=== PATIENT | male | born 1940 | race Caucasian/White ===

== ENCOUNTER 2018-09-23 11:23 | Emergency (ER) | payer OTHER ==
[~2018-09-23] VITALS: Ht 172.7 cm; Wt 95.2 kg
[~2018-09-23 11:23] MED LIST: AMOX875 PO; ASPI81CH PO; ASPI81EC; ATOR40TA PO; CARV25 PO; DOXY100T53 PO; HYDACE5325 PO; Hydrocodone-Ap1 EA23 PO; LISI5 PO; METO50 PO; Norco 5-325 Ta1 EACH PO; OXYACE5T PO; WARF4; XARELTO20 MG PO; Zofran4 MG PO
[2018-09-23 11:59] LABS: BASOPHILS ABSOLUTE AUTO 0.04 K/mm3 (0.00-0.23); BASOPHILS PERCENT AUTO 1 % (0-2); EOSINOPHILS ABSOLUTE AUTO 0.15 K/mm3 (0.00-0.68); EOSINOPHILS PERCENT AUTO 2 % (0-6); Hematocrit 45.9 % (37.0-53.0); Hemoglobin 14.6 g/dL (13.5-17.5); IMMATURE GRAN ABSOLUTE AUTO 0.03 K/mm3 (0.00-0.10); IMMATURE GRAN PERCENT AUTO 1 % (0-1); LYMPHOCYTES ABSOLUTE AUTO 1.39 K/mm3 (0.84-5.20); LYMPHOCYTES PERCENT AUTO 22 % (21-46); MONOCYTES ABSOLUTE AUTO 0.47 K/mm3 (0.16-1.47); MONOCYTES PERCENT AUTO 7 % (4-13); Mean Corpuscular HGB 26.4 pg (26.0-34.0); Mean Corpuscular HGB Conc 31.8 g/dL (31.5-36.5); Mean Corpuscular Volume 83 fL (80-100); Mean Platelet Volume 10.3 fL (9.1-12.4); NEUTROPHILS ABSOLUTE AUTO 4.38 K/mm3 (1.96-9.15); NEUTROPHILS PERCENT AUTO 68 % (41-73); Platelet Count 146 K/mm3 (150-400); RDW Coefficient Variation 16.3 % (11.7-14.2); RDW Standard Deviation 49.4 fL (35.1-46.3); Red Blood Cell Count 5.54 M/mm3 (4.30-5.90); White Blood Cell Count 6.46 K/mm3 (4.00-11.30)
[2018-09-23 12:18] LABS: International Normalized Ratio 1.19; Prothrombin Time Results 12.4 Sec (9.7-11.5)
[2018-09-23 12:27] LABS: Alanine Aminotransfer (ALT/SGP 24 U/L (12-78); Albumin, Blood 3.7 g/dL (3.4-5.0); Alk Phos 83 U/L (50-136); Anion Gap 6 mmol/L (6-16); Aspartate Aminotrans (AST/SGOT 18 U/L (12-37); Bilirubin, Total 0.9 mg/dL (0.1-1.0); Blood Urea Nitrogen 15 mg/dL (8-24); Bun/Creatinine Ratio 13.4 (12.0-20.0); CO2, Blood 30 mmol/L (21-32); Calcium, Blood 9.3 mg/dL (8.5-10.1); Chloride, Blood 102 mmol/L (98-108); Creatinine, Blood 1.12 mg/dL (0.60-1.20); Globulin, Blood 3.6 g/dL (2.2-4.0); Glomerular Filtration Rate >60 (60-); Glucose, Blood 245 mg/dL (70-99); Potassium, Blood 3.7 mmol/L (3.5-5.5); Sodium, Blood 138 mmol/L (136-145); Total Protein, Blood 7.3 g/dL (6.4-8.2)
[2018-09-23] MEDS ORDERED: TORSE20 PO (12:59)
[2018-09-23] MEDS ORDERED: Omeprazole20 M1 PO (13:00)
[2018-09-23] MEDS ORDERED: SPIR25 PO (13:00)
[2018-09-23 14:00] LABS: Source, Urine Clean Catch
[2018-09-23 14:10] LABS: Bilirubin, Urine Neg (Neg); Blood, Urine Neg (Neg); Glucose Qualitative, Urine Neg (Neg); Ketones, Urine Neg (Neg); Leukocyte Esterase, Urine Neg (Neg); Nitrite, Urine Neg (Neg); Protein, Urine Neg (Neg); Urobilinogen, Urine NORM (Normal); pH, Urine 6.5 (5.0-8.0)
[2018-09-23 14:22] LABS: Appearance, Urine Clear (Clear); Color, Urine Yellow (P-Yellow)
== END 2018-09-23 14:53 | disposition home or self-care (01) ==
LOC: ER 11:23
PROVIDERS: Emergency Medicine; Physician Assistant
DX: R10.9 Unspecified abdominal pain (principal); I48.91 Unspecified atrial fibrillation; Z79.899 Other long term (current) drug therapy
CPT/HCPCS: 36415; 80053; 81003; 85025; 85610; 93005; 93010; 96361; 96374; 96375; 99284-25; J2405; J3010; J7030

== ENCOUNTER 2018-10-03 19:53 | Emergency (ER) | payer OTHER ==
[~2018-10-03] VITALS: Ht 170.2 cm; Wt 108.9 kg
[~2018-10-03 19:53] MED LIST changes: +Omeprazole20 M1 PO; +SPIR25 PO; +TORSE20 PO
== END 2018-10-03 20:56 | disposition home or self-care (01) ==
LOC: ER 19:53
DX: R33.9 Retention of urine, unspecified (principal); Z88.8 Allergy status to other drugs, medicaments and biological substances; I48.91 Unspecified atrial fibrillation; E78.5 Hyperlipidemia, unspecified; I10 Essential (primary) hypertension; Z87.891 Personal history of nicotine dependence
CPT/HCPCS: 51702

== ENCOUNTER 2018-10-20 17:01 | Inpatient (IN) | payer OTHER ==
[~2018-10-20] VITALS: Ht 170.2 cm; Wt 97.9 kg
[2018-10-20 17:37] LABS: BASOPHILS ABSOLUTE AUTO 0.05 K/mm3 (0.00-0.23); BASOPHILS PERCENT AUTO 1 % (0-2); EOSINOPHILS ABSOLUTE AUTO 0.17 K/mm3 (0.00-0.68); EOSINOPHILS PERCENT AUTO 2 % (0-6); Hematocrit 32.3 % (37.0-53.0); Hemoglobin 10.4 g/dL (13.5-17.5); IMMATURE GRAN ABSOLUTE AUTO 0.07 K/mm3 (0.00-0.10); IMMATURE GRAN PERCENT AUTO 1 % (0-1); LYMPHOCYTES ABSOLUTE AUTO 2.92 K/mm3 (0.84-5.20); LYMPHOCYTES PERCENT AUTO 37 % (21-46); MONOCYTES PERCENT AUTO 9 % (4-13); Mean Corpuscular HGB 27.3 pg (26.0-34.0); Mean Corpuscular HGB Conc 32.2 g/dL (31.5-36.5); Mean Corpuscular Volume 85 fL (80-100); Mean Platelet Volume 9.4 fL (9.1-12.4); NEUTROPHILS ABSOLUTE AUTO 4.04 K/mm3 (1.96-9.15); NEUTROPHILS PERCENT AUTO 51 % (41-73); Platelet Count 296 K/mm3 (150-400); RDW Coefficient Variation 17.7 % (11.7-14.2); RDW Standard Deviation 54.1 fL (35.1-46.3); Red Blood Cell Count 3.81 M/mm3 (4.30-5.90); White Blood Cell Count 7.95 K/mm3 (4.00-11.30)
[2018-10-20 17:50] LABS: Alanine Aminotransfer (ALT/SGP 51 U/L (12-78); Albumin, Blood 3.4 g/dL (3.4-5.0); Albumin/Globulin Ratio 0.7 (0.8-1.8); Alk Phos 92 U/L (50-136); Anion Gap 9 mmol/L (6-16); Aspartate Aminotrans (AST/SGOT 31 U/L (12-37); Bilirubin, Total 0.5 mg/dL (0.1-1.0); Blood Urea Nitrogen 14 mg/dL (8-24); Bun/Creatinine Ratio 15.9 (12.0-20.0); CO2, Blood 30 mmol/L (21-32); Chloride, Blood 96 mmol/L (98-108); Creatinine, Blood 0.88 mg/dL (0.60-1.20); Globulin, Blood 4.9 g/dL (2.2-4.0); Glomerular Filtration Rate >60 (60-); Glucose, Blood 165 mg/dL (70-99); Magnesium, Blood 2.1 mg/dL (1.6-2.4); Potassium, Blood 2.9 mmol/L (3.5-5.5); Sodium, Blood 135 mmol/L (136-145); Total Protein, Blood 8.3 g/dL (6.4-8.2); Troponin I <0.015 ng/mL (0.000-0.040)
[2018-10-20 17:53] LABS: Prothrombin Time Results 10.6 Sec (9.7-11.5)
[2018-10-20] MEDS ORDERED: METO25ER PO (19:29)
[2018-10-20] MEDS ORDERED: FINA5 PO (19:29)
[2018-10-20] MEDS ORDERED: TAMS.4ER PO (21:18)
[2018-10-20 22:49] LABS: Anion Gap 7 mmol/L (6-16); Blood Urea Nitrogen 14 mg/dL (8-24); Bun/Creatinine Ratio 16.8 (12.0-20.0); CO2, Blood 32 mmol/L (21-32); Calcium, Blood 8.8 mg/dL (8.5-10.1); Chloride, Blood 98 mmol/L (98-108); Creatinine, Blood 0.83 mg/dL (0.60-1.20); Glomerular Filtration Rate >60 (60-); Glucose, Blood 165 mg/dL (70-99); Magnesium, Blood 2.8 mg/dL (1.6-2.4); Potassium, Blood 3.5 mmol/L (3.5-5.5); Sodium, Blood 137 mmol/L (136-145)
[2018-10-20 22:51] LABS: Thyroid Stimulating Hormone 0.169 uIU/mL (0.360-4.800)
[2018-10-20 23:48] LABS: Source, Urine Catheter
[2018-10-20 23:54] LABS: Bilirubin, Urine Neg (Neg); Blood, Urine 4+ (Neg); Glucose Qualitative, Urine Neg (Neg); Ketones, Urine Neg (Neg); Leukocyte Esterase, Urine 1+ (Neg); Nitrite, Urine Neg (Neg); Protein, Urine 1+ (Neg); Urobilinogen, Urine NORM (Normal)
[2018-10-20 23:57] LABS: Appearance, Urine Clear (Clear); Color, Urine Yellow (P-Yellow)
[2018-10-21] LABS: Bacteria Mod /hpf; Red Blood Cells, Urine 25-50 /hpf (0-2); Squamous Epithelial Cells Not Seen /hpf (Few)
--- NOTE | 2018-10-21 02:59 | NUR ---
PT ARRIVAL. PT ARRIVED ON UNIT VIA GURNEY, PT WAS ADMITTED DUE TO AICD DISCHARGE AT HOME. PT CURRENTLY DENEIS ANY CHEST PAIN/PRESSURE, N/V OR SOB. PT IS A&Ox4. PT IS [place]. PT WAS ADMITTED W/RONDON THAT WAS PLACED BY A URGOLOGIST IN [place] DUE TO RETENTION AND KIDNEY STONE. PT IS SUPPOSED TO HAVE LITHOTRIPSY DONE THIS MONTH. TELE WAS PLACED, NSR W/FREQUENT PVCS AND RUNS OF VTACH. PT IS NOT SYMPTOMATIC DURING THESE RUNS OF VTACH. PT'S BP 154/68. NO EDEMA NOTED ON ASSESSMENT. PT'S L/S CLEAR T/O AND DIM IN THE BASES, PT IS ON RA W/STATS >90%. RESPIRATIONS ARE EVEN AND UNLABORED. BT PRESENT AND HYPERACTIVE, ABD IS SOFT AND NONTENDER TO PALP. PT STATES NO BM FOR 5 DAYS. PT HAS RONDON PRESENT IT IS PATENT AND DRAINING TO GRAVITY YELLOW URINE. CALL LIGHT IN REACH, BED IS LOCKED AND LOW WILL CONTINUE TO MONITOR.
--- NOTE | 2018-10-21 05:53 | NUR ---
SHIFT SUMMARY. NO ACUTE CHANGES NOTED. PT'S VS HAVE BEEN STABLE. PT CONTINUES TO HAVE RUNS OF VTACH, PT IS NOT SYMPTOMATIC AT THIS TIME DURING THESE RUNS. CARDIOLOGY CONSULT WAS CALLED INTO ANSWERING SERVICE. CALL LIGHT IN REACH, BED IS LOCKED AND LOW WILL CONTINUE TO MONITOR UNTIL REPORT IS GIVEN TO ONCOMING RN.
[2018-10-21 06:28] LABS: Alanine Aminotransfer (ALT/SGP 41 U/L (12-78); Albumin/Globulin Ratio 0.7 (0.8-1.8); Alk Phos 76 U/L (50-136); Anion Gap 6 mmol/L (6-16); Aspartate Aminotrans (AST/SGOT 22 U/L (12-37); Bilirubin, Total 0.8 mg/dL (0.1-1.0); Blood Urea Nitrogen 14 mg/dL (8-24); Bun/Creatinine Ratio 17.8 (12.0-20.0); CO2, Blood 33 mmol/L (21-32); Calcium, Blood 8.7 mg/dL (8.5-10.1); Chloride, Blood 98 mmol/L (98-108); Creatinine, Blood 0.79 mg/dL (0.60-1.20); Globulin, Blood 4.1 g/dL (2.2-4.0); Glomerular Filtration Rate >60 (60-); Glucose, Blood 125 mg/dL (70-99); Magnesium, Blood 2.7 mg/dL (1.6-2.4); Potassium, Blood 3.1 mmol/L (3.5-5.5); Sodium, Blood 137 mmol/L (136-145); Total Protein, Blood 7.1 g/dL (6.4-8.2)
--- NOTE | 2018-10-21 09:12 | NUR ---
ARRYTHMIA PT DEVELOPED TORSADES ON MONITOR. ECHO WAS AT BEDSIDE DURING EVENT. PT FELT "WEIRD" . AFTER EVENT PT FEELING FINE. CERTIFIED NUCLEAR MEDICINE TECHNOLOGIST CONFIRMED ARRYTHMIA. PAGED DR MATTHEWS. CONTINUE POT.
--- NOTE | 2018-10-21 10:07 | NUR ---
K RIDER STARTED K RIDER #1. TALKED WITH PT ABOUT IT POSSIBLE BURNING HIS ARM. PLACED A WARM PACK ON HIS FA FOR COMFORT. PT STILL SAID IT HURT. PLACED AN ORDER FOR NS AT [facility] TO DILUTE KRIDER. TALKED WITH CHARGE NURSE AND REQUESTED A POWER GLIDE FOR HIM. DILUTION SEEMS TO BE HELPING. CONTINUE POT.
--- NOTE | 2018-10-21 11:37 | NUR ---
POTASSIUM RIDER DILUTED KRIDER FOR PT COMFORT. PT TOLERATIONG WELL. PT CARDIAC RYTHM ON MONITOR IS LESS IRRITABLE AFTER ALICIA KRIDER. ECTOPY HAS ALMOST STOPPED. OCCASIONAL PVC NOTED. PT SKIN COLOR IMPROVED. HE HAS PINK CHEEKS. VSS. CONTINUE POT.
--- NOTE | 2018-10-21 15:01 | NUR ---
POTASSIUM LEVEL PT POTASSIUM LEVEL CALLED TO DR MATTHEWS PER REQUEST. UPDATE ON PT CONDITION AND CARDIAC ARRYTHMIA GIVEN. NO ORDERS RECEIVED. PT CURRENTLY RESTING QUIETLY. CONTINUE POT.
[2018-10-22 03:58] LABS: Anion Gap 6 mmol/L (6-16); Blood Urea Nitrogen 17 mg/dL (8-24); Bun/Creatinine Ratio 17.7 (12.0-20.0); CO2, Blood 31 mmol/L (21-32); Calcium, Blood 9.2 mg/dL (8.5-10.1); Chloride, Blood 101 mmol/L (98-108); Creatinine, Blood 0.96 mg/dL (0.60-1.20); Glomerular Filtration Rate >60 (60-); Glucose, Blood 130 mg/dL (70-99); Magnesium, Blood 2.5 mg/dL (1.6-2.4); Potassium, Blood 3.9 mmol/L (3.5-5.5); Sodium, Blood 138 mmol/L (136-145)
--- NOTE | 2018-10-22 04:43 | NUR ---
CALL TO MD LEYVA AT 0430 THIS MORNING D/T FREQUENT PVC'S. PT'S K AND MG LEVELS REPORTED W/ ORDERS GIVEN FOR IV KCL TO BE GIVEN AT THIS TIME, SEE EMAR.
--- NOTE | 2018-10-22 05:40 | NUR ---
SHIFT SUMMARY PT A&O X4. MONITOR SHOWS AFIB, HR 40'S-70'S W/ FREQUENT PVC'S. CALL TO MD LEYVA W/ ORDERS FOR IV POTASSIUM, SEE EMAR. IV POTASSIUM INFUSING PER ORDERS. PT C/O BURNING SENSATION W/ INFUSION. NS GTT NOW INFUSING W/ POTASSIUM W/ PT REPORT OF INFUSION NOW BEING "TOLERABLE." PT C/O "TAILBONE" DISCOMFORT BEGINNING OF SHIFT. PT MEDICATED PER EMAR AND REPOSITIONED W/ NO FURTHER COMPLAINTS. CHRONIC RONDON CATH PLACED BY UROLOGIST IN [place] PATENT AND DRAINING DARK YELLOW URINE. PT IN BED W/ CALL LIGHT IN REACH. EKG DONE THIS AM. PT NPO SINCE MIDNIGHT. WILL CONTINUE TO MONITOR AND PROVIDE CARE UNTIL REPORT OFF TO DAY SHIFT RN.
--- NOTE | 2018-10-22 06:24 | NUR ---
MD MATTHEWS IN TO SEE PT W/ CLEARANCE TO EAT BREAKFAST. 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
--- NOTE | 2018-10-22 08:01 | NUR ---
PT'S ICD LOWER RATE CHANGED FROM VVI 40 TO VVI [address] MATTHEWS'S VERBAL ORDER
--- NOTE | 2018-10-22 08:15 | NUR ---
INITIAL ASSESSMENT: Pt resting in bed with IVF running per orders. VSS. LS clear. BT positive. HR irregular, tele shows NSR with frequent PVC's. AICD to L chest wall. Pt denies Chest pain or SOB at this time. States that he is going home today. PHysician just in to see Pt and D/C orders being written. Pt denies other needs. IV potassium to be completed prior to discharge. PT aware. Call light in reach. Will monitor.
[2018-10-22] MEDS ORDERED: ASPI81CH PO (10:30)
[2018-10-22] MEDS ORDERED: CARV25 PO (10:31)
[2018-10-22] MEDS ORDERED: Prinivil10 MG PO (10:32)
[2018-10-22] MEDS ORDERED: Micro-K10 MEQ PO (10:34)
--- NOTE | 2018-10-22 12:28 | NUR ---
DISCHARGE: PT GIVEN PRINTED AND WRITTEN DISCHARGE INSTUCTIONS, VERBALIZED UNDERSTANDING, DENIES QUIESTIONS. IV DISCONTINUED, CATH INTACT. RX CALLED TO [facility] IN [facility]. PT LEFT VIA W/C WITH ESCORT. STABLE AT TIME OF DISHCARGE.
== END 2018-10-22 12:21 | disposition home or self-care (01) | DRG 310 ==
LOC: ER 17:01 → ERHOLD 17:02 → PCU 17:02
PROVIDERS: Emergency Medicine; Internal Medicine Cardiovascular Disease; ADMIT Internal Medicine
DX: T82.190A Other mechanical complication of cardiac electrode, initial encounter (principal); I25.5 Ischemic cardiomyopathy; I10 Essential (primary) hypertension; I25.10 Atherosclerotic heart disease of native coronary artery without angina pectoris; E87.6 Hypokalemia; I25.2 Old myocardial infarction; I48.0 Paroxysmal atrial fibrillation; Z79.01 Long term (current) use of anticoagulants; E78.5 Hyperlipidemia, unspecified; E66.01 Morbid (severe) obesity due to excess calories; I08.0 Rheumatic disorders of both mitral and aortic valves; N40.1 Benign prostatic hyperplasia with lower urinary tract symptoms; K21.9 Gastro-esophageal reflux disease without esophagitis
CPT/HCPCS: 36415; 71045; 80048; 80053; 81001; 83735; 83880; 84132; 84443; 84484; 85025; 85610; 85730; 87077; 87086; 87186; 93005; 93010; 93282; 93306; 96365; 96366; 96368; 99285-25; G0378; J3475; J3480; J7040

== ENCOUNTER 2018-11-03 19:57 | Inpatient (IN) | payer OTHER ==
[~2018-11-03] VITALS: Ht 170.2 cm; Wt 103.3 kg
[~2018-11-03 19:57] MED LIST changes: +FINA5 PO; +METO25ER PO; +Micro-K10 MEQ PO; +Prinivil10 MG PO; +TAMS.4ER PO
[2018-11-03 20:20] LABS: Calcium, Ionized (POC) 1.19 mmol/L (1.10-1.46); Chloride (POC) 96 mmol/L (98-108); Creatinine (POC) 1.5 mg/dL (0.8-1.3); Glucose (ISTAT POC) 207 mg/dL (70-99); Hemoglobin (POC) 9.9 g/dL (13.5-17.5); Potassium (POC) 4.4 mmol/L (3.5-5.5); Sodium (POC) 136 mmol/L (135-148); Total CO2 (POC) 28 mmol/L (21-32)
[2018-11-03 20:23] LABS: BASOPHILS ABSOLUTE AUTO 0.03 K/mm3 (0.00-0.23); BASOPHILS PERCENT AUTO 0 % (0-2); EOSINOPHILS ABSOLUTE AUTO 0.15 K/mm3 (0.00-0.68); EOSINOPHILS PERCENT AUTO 2 % (0-6); Hematocrit 30.9 % (37.0-53.0); Hemoglobin 9.7 g/dL (13.5-17.5); IMMATURE GRAN ABSOLUTE AUTO 0.08 K/mm3 (0.00-0.10); IMMATURE GRAN PERCENT AUTO 1 % (0-1); LYMPHOCYTES ABSOLUTE AUTO 2.28 K/mm3 (0.84-5.20); LYMPHOCYTES PERCENT AUTO 23 % (21-46); MONOCYTES ABSOLUTE AUTO 0.91 K/mm3 (0.16-1.47); MONOCYTES PERCENT AUTO 9 % (4-13); Mean Corpuscular HGB 27.3 pg (26.0-34.0); Mean Corpuscular HGB Conc 31.4 g/dL (31.5-36.5); Mean Corpuscular Volume 87 fL (80-100); Mean Platelet Volume 10.2 fL (9.1-12.4); NEUTROPHILS ABSOLUTE AUTO 6.58 K/mm3 (1.96-9.15); NEUTROPHILS PERCENT AUTO 66 % (41-73); Platelet Count 199 K/mm3 (150-400); RDW Coefficient Variation 16.8 % (11.7-14.2); Red Blood Cell Count 3.55 M/mm3 (4.30-5.90); White Blood Cell Count 10.03 K/mm3 (4.00-11.30)
[2018-11-03 20:43] LABS: Prothrombin Time Results 10.6 Sec (9.7-11.5)
[2018-11-03] MEDS ORDERED: XARELTO10 MG PO (20:45)
[2018-11-03 20:47] LABS: Alanine Aminotransfer (ALT/SGP 18 U/L (12-78); Albumin, Blood 3.3 g/dL (3.4-5.0); Albumin/Globulin Ratio 0.8 (0.8-1.8); Alk Phos 80 U/L (50-136); Anion Gap 10 mmol/L (6-16); Aspartate Aminotrans (AST/SGOT 11 U/L (12-37); Bilirubin, Total 0.5 mg/dL (0.1-1.0); Blood Urea Nitrogen 34 mg/dL (8-24); Bun/Creatinine Ratio 24.3 (12.0-20.0); CO2, Blood 25 mmol/L (21-32); Calcium, Blood 9.1 mg/dL (8.5-10.1); Chloride, Blood 101 mmol/L (98-108); Glomerular Filtration Rate 52 (60-); Glucose, Blood 199 mg/dL (70-99); Magnesium, Blood 1.9 mg/dL (1.6-2.4); Potassium, Blood 3.8 mmol/L (3.5-5.5); Sodium, Blood 136 mmol/L (136-145); Total Protein, Blood 7.3 g/dL (6.4-8.2); Troponin I <0.015 ng/mL (0.000-0.040)
[2018-11-04 00:20] LABS: Source, Urine Catheter
[2018-11-04 00:22] LABS: Bilirubin, Urine Neg (Neg); Blood, Urine 5+ (Neg); Color, Urine Brown (P-Yellow); Glucose Qualitative, Urine 1+ (Neg); Ketones, Urine 1+ (Neg); Leukocyte Esterase, Urine 3+ (Neg); Nitrite, Urine Neg (Neg); Protein, Urine 3+ (Neg); Urobilinogen, Urine NORM (Normal)
[2018-11-04 00:31] LABS: Appearance, Urine Cloudy (Clear); Red Blood Cells, Urine 50-100 /hpf (0-2)
[2018-11-04 00:32] LABS: Amorphous Mod (0-Heavy); Bacteria Many /hpf; Mucus Light (0-Heavy); Squamous Epithelial Cells Not Seen /hpf (Few)
--- NOTE | 2018-11-04 04:38 | NUR ---
ASSUMING CARE AND SHIFT SUMMARY NOTE RECEIVED PT REPORT FROM ANDREW ISSA IN ER. PT IS BEING ADMITTED DUE TO INTERNAL DEFIBRILATOR FIRING MULTIPLE TIMES THROUGHOUT THE DAY. PT IS ALERT AND ORIENTED AT THE TIME OF ARRIVAL TO UNIT. PT WAS TRANSFERED TO ICU VIA STRETCHER BY ITALIAN TEACHER. PT ARRIVED TO THE UNIT AT APPROX 2258. PT IS RECEIVING AMIODARONE AT 1MG/MIN AT THE TIME OF ARRIVAL TO UNIT. NS AT 150ML/HR INITIATED SHORTLY AFTER ARRIVAL TO THE UNIT. PT ALSO PROVIDED X2 20MEQ OF KCL SHORTLY AFTER ARRIVAL TO UNIT. RATE WAS DECREASED TO 30ML/HR FROM 50ML/HR DUE TO PT REPORTS OF STINGING AT IV SITE RELATED TO KCL ADMINISTRATION. AT THE TIME OF ARRIVAL TO UNIT PT HR IS IN THE 50'S TO 60'S. PT RHYTHM APPEARS TO BE PACED THOUGH PACER SPIKES NOT BEING CAPTURED BY MONITOR AT THIS TIME. PT HAS HAD OCCASIONAL PVC'S AND A SHORT RUN OF APPROX 3 BEATS OF V-TACH NOTED. REFER TO CARDIAC STRIPS. PT HAS 22FR RONDON CATH IN PLACE THAT WAS PRESENT ON ADMISSION. PER REPORT RONDON WAS PLACED BY UROLOGIST ON 10/11/18 POST OPERATIVELY AFTER PROSTATECTOMY PROCEDURE. URINE APPEARS TO BE DARK AND BURGANDY IN COLOR. URINE SAMPLE COLLECTED AND SENT TO LAB. PT REPORTS THAT RONDON WAS PLACED BY UROLOGIST AFTER A FALSE PATHWAY WAS FORMED WITH RONDON PLACEMENT. DR. LEYVA CALLED AND INFORMED OF RONDON AND PLACEMENT BY UROLOGIST. INSTRUCTIONS RECEIVED TO NOT REMOVE/REPLACE RONDON AT THIS TIME. UPON ARRIVAL PT BP WAS FOUND TO BE IN THE 80'S RANGE. PT WAS ALERT AND ORIENTED WITH NO S/SX OF HYPOTENSION AT THAT TIME. BP WAS RECHECKED ON OTHER ARM WITH SIMILAR OR LOWER READINGS. RESULTS QUESTIONED PT DID NOT EXHIBIT S/SX OF HYPOTENSION. BP CHECKED ON LOWER EXTREMITIED WITH RESULTS IN THE 90-100'S RANGE SYSTOLIC. MANUAL BP CHECKED ON ARMS WITH RESULTS APPROX 10 POINTS HIGHER THAN AUTOMATIC BP CHECKS. MANUAL BP ON ARMS CORRELATED WITH BP ON LOWER EXTREMITIES. AT APPROX 0250 PT AMIODARONE WAS REDUCED TO 0.5MG/MIN. ASSUMED CARE OF PT AT THE TIME OF ARRIVAL TO UNIT. PT HAS RESTED THROUGH MUCH OF THE NIGHT. PT HR MAINTAINING IN THE 50-60'S. BP MAINTAINING IN THE 90-110'S WITH BP CUFF ON THE LOWER EXTREMITIES. WILL REPORT OFF TO ONCOMING DAY SHIFT NURSE.
[2018-11-04 05:42] LABS: Alanine Aminotransfer (ALT/SGP 17 U/L (12-78); Albumin, Blood 2.9 g/dL (3.4-5.0); Albumin/Globulin Ratio 0.9 (0.8-1.8); Alk Phos 70 U/L (50-136); Anion Gap 6 mmol/L (6-16); Aspartate Aminotrans (AST/SGOT 13 U/L (12-37); Bilirubin, Total 0.4 mg/dL (0.1-1.0); Blood Urea Nitrogen 29 mg/dL (8-24); Bun/Creatinine Ratio 25.2 (12.0-20.0); CO2, Blood 25 mmol/L (21-32); Calcium, Blood 9.1 mg/dL (8.5-10.1); Chloride, Blood 108 mmol/L (98-108); Creatinine, Blood 1.15 mg/dL (0.60-1.20); Globulin, Blood 3.3 g/dL (2.2-4.0); Glomerular Filtration Rate >60 (60-); Glucose, Blood 133 mg/dL (70-99); Magnesium, Blood 2.5 mg/dL (1.6-2.4); Potassium, Blood 5.6 mmol/L (3.5-5.5); Sodium, Blood 139 mmol/L (136-145); Total Protein, Blood 6.2 g/dL (6.4-8.2)
--- NOTE | 2018-11-04 08:53 | NUR ---
0700-ASSUMED CARE OF PT. PT IS ALERT AND ORIENTED. DENIES PAIN AT THIS TIME. PT WAS RECENTLY MEDICATED WITH TYLENOL. 0820-REPOSITIONED PT FOR BREAKFAST. 0845-SEEN BY DR. MATTHEWS. PT WILL BE TRANSFERED TO [facility].
--- NOTE | 2018-11-04 14:37 | NUR ---
Met with and Mrs. Sellers at bedside. Both report concern for pt's transfer to [place] for cardiac intervention. They are not bahai, but responded well to assurance of care, affirmation of obvious love, and a blessing for a healthy outcome.
--- NOTE | 2018-11-04 16:12 | NUR ---
1530-DR. MATTHEWS WAS NOTIFIED THAT PT FELT A "HAMLIN". PT DENIED BEING SHOCKED BUT THIS WAS THE SYMPTOM HE FELT. STILL NO BEDS AVAILABLE IN [facility]. STILL ON AMIODARONE DRIP TO END @ 2029 PER REPORT FROM NIGHT RN. WILL START FOR PO AMIODARONE 1 HOUR BEFORE DISCONTINUING DRIP. PT AND SPOUSE WERE GIVEN UPDATES OF BED AVAILABILITY.
--- NOTE | 2018-11-04 17:57 | NUR ---
SHIFT SUMMARY: PT IS AWAKE AND ORIENTED. STILL WAITING FOR AVAILABLE BED IN [facility]. PT HAS BEEN TAKING SOME TYLENOL FOR HIS "TAIL BONE" PAIN. AFEBRILE. NO SHOCKS DELIVERING NOTED FROM [facility].
--- NOTE | 2018-11-04 20:15 | NUR ---
REPORT RECIEVED FROM JAN OFF GOING RN. MONITOR INTACT SHOWING PACED RHYTHM HEART RATE 50'S-60'S. DENIES DISCOMFORT. LUNG SOUNDS CLEAR RESPIRATIONS REGULAR AND EASY AT REST 15-20/MIN/ SPO2 100% O2 REMOVED WILL CONTINUE TO SPOT CHECK. ABDOMEN SOFT WITH BOWEL SOUNDS FOUR QUADS. RONDON PATENT DRAINING DK MARYA URINE. REPOSITIONS SELF IN BED. TRACE EDEMA NOTED TO LOWER EXTREMITIES. WILL CONTINUE TO MONITOR AND REPORT CHANGE IN PATIENT CONDITION. ANTICIPATES TRANSFER TO [facility] IN AM
--- NOTE | 2018-11-04 21:42 | NUR ---
PT STATES " FEELS STRANGE" DENIES PAIN, SHORTNESS OF BREATH NO CHANGES IN THYTHM MONITOR, RESPIRATIONS, FACIAL EXPRESSION. UNABLE TO VERBALIZE ANY OTHER DETAILS. FARM OPERATIONS MANAGER EQUAL, NO FACIAL DROO[ OR CHANGES NOTED IN SPEECH OR PUPILS. CONTINUE TO MONITOR AND REPORT CHANGE IN PATIENT CONDITION.
--- NOTE | 2018-11-04 23:30 | NUR ---
DISCUSSED PENDING TRANSFER TO [facility] WITH PT
--- NOTE | 2018-11-05 02:00 | NUR ---
CO "FEELING STUFFY UNABLE TO EXPLAIN FURTHER. FEELING NERVOUS RE TRANSFER IN THE MORNING" CONTINUE TO MONITOR AND REPORT CHANGE IN PATIENT CONDITION. REASSURENCE AND EMOTIONAL SUPPORT GIVEN. ACTIVE LISTENING TO CONCERNS.
[2018-11-05 03:30] LABS: BASOPHILS ABSOLUTE AUTO 0.05 K/mm3 (0.00-0.23); BASOPHILS PERCENT AUTO 1 % (0-2); EOSINOPHILS PERCENT AUTO 2 % (0-6); Hematocrit 28.5 % (37.0-53.0); Hemoglobin 8.7 g/dL (13.5-17.5); IMMATURE GRAN ABSOLUTE AUTO 0.07 K/mm3 (0.00-0.10); IMMATURE GRAN PERCENT AUTO 1 % (0-1); LYMPHOCYTES ABSOLUTE AUTO 2.05 K/mm3 (0.84-5.20); LYMPHOCYTES PERCENT AUTO 22 % (21-46); MONOCYTES ABSOLUTE AUTO 0.79 K/mm3 (0.16-1.47); MONOCYTES PERCENT AUTO 8 % (4-13); Mean Corpuscular HGB 26.8 pg (26.0-34.0); Mean Corpuscular HGB Conc 30.5 g/dL (31.5-36.5); Mean Corpuscular Volume 88 fL (80-100); Mean Platelet Volume 10.2 fL (9.1-12.4); NEUTROPHILS ABSOLUTE AUTO 6.24 K/mm3 (1.96-9.15); NEUTROPHILS PERCENT AUTO 67 % (41-73); Platelet Count 175 K/mm3 (150-400); RDW Coefficient Variation 16.7 % (11.7-14.2); RDW Standard Deviation 54.1 fL (35.1-46.3); Red Blood Cell Count 3.25 M/mm3 (4.30-5.90)
[2018-11-05 03:46] LABS: Albumin, Blood 2.9 g/dL (3.4-5.0); Anion Gap 7 mmol/L (6-16); Blood Urea Nitrogen 19 mg/dL (8-24); Bun/Creatinine Ratio 21.1 (12.0-20.0); CO2, Blood 25 mmol/L (21-32); Calcium, Blood 9.4 mg/dL (8.5-10.1); Chloride, Blood 104 mmol/L (98-108); Glomerular Filtration Rate >60 (60-); Glucose, Blood 135 mg/dL (70-99); Phosphorus, Blood 2.7 mg/dL (2.5-4.9); Potassium, Blood 4.4 mmol/L (3.5-5.5); Sodium, Blood 136 mmol/L (136-145)
--- NOTE | 2018-11-05 05:32 | NUR ---
SHIFT SUMMARY : RESTS QUIETLY WHEN UNDISTURBED. MONITOR INTACT SHOWING PACED RHYTHM WITH OCC ECTOPY. HEART RATE 50'S-60'S. LUNG SOUNDS REMAIN CLEAR. RESPIRATIONS REGULAR AND EASY AT REST. SPOT CHECK SPO2 98-100%. ABDOMEN SOFT WITH BOWEL SOUNDS FOUR QUADS. RONDON PATENT DRAINING DARK MARYA URINE. REPOSITIONS SELF IN BED. REPORT ATTEMPTED TO BE CALLED TO [facility] ACCEPTING RN HOWEVER SHE STATES UNABLE TO ACCEPT REPORT AT THIS TIME BUT WILL CALL BACK FOR REPORT.
--- NOTE | 2018-11-05 05:55 | NUR ---
[facility] HERE TO TRANSPORT REPORT GIVEN TO AMBULANCE PERSONELL. TRANSFER TO [facility] [place] .
--- NOTE | 2018-11-05 06:42 | NUR ---
0608 DELRO[facility] MORALES CALLED FOR REPORT. HAS BEEN UNAVAILABLE, REPORT GIVEN.
== END 2018-11-05 05:55 | disposition short-term general hospital (02) | DRG 309 ==
LOC: ER 19:57 → ICUE 21:49 → ICUW 21:49 → ICUE 22:50
PROVIDERS: Emergency Medicine; Family Medicine; ADMIT Hospitalist
DX: I47.2 Ventricular tachycardia (principal); N17.9 Acute kidney failure, unspecified; I25.5 Ischemic cardiomyopathy; E87.6 Hypokalemia; I25.10 Atherosclerotic heart disease of native coronary artery without angina pectoris; I48.0 Paroxysmal atrial fibrillation; Z95.810 Presence of automatic (implantable) cardiac defibrillator; E78.5 Hyperlipidemia, unspecified; I10 Essential (primary) hypertension; E66.01 Morbid (severe) obesity due to excess calories; Z68.38 Body mass index [BMI] 38.0-38.9, adult; R33.9 Retention of urine, unspecified; K21.9 Gastro-esophageal reflux disease without esophagitis; Z96.0 Presence of urogenital implants; I25.2 Old myocardial infarction; E87.5 Hyperkalemia; I49.01 Ventricular fibrillation
CPT/HCPCS: 36415; 71045; 80047; 80053; 80069; 81001; 83605; 83735; 84132; 84484; 85014; 85025; 85610; 87086; 93005; 93010; 96365; 96366; 96375; 99285-25; J0282; J3475; J3480; J7030; J7060

== ENCOUNTER → 2024-01-25 | Outpatient (CLI) | payer MEDICARE ==
[~2024-01-25] MED LIST changes: +XARELTO10 MG PO
[2024-01-25 08:41] LABS: BASOPHILS ABSOLUTE AUTO 0.04 K/mm3 (0.00-0.23); BASOPHILS PERCENT AUTO 1 % (0-2); EOSINOPHILS ABSOLUTE AUTO 0.06 K/mm3 (0.00-0.68); EOSINOPHILS PERCENT AUTO 1 % (0-6); Hematocrit 47.8 % (37.0-53.0); Hemoglobin 15.9 g/dL (13.5-17.5); IMMATURE GRAN ABSOLUTE AUTO 0.03 K/mm3 (0.00-0.10); IMMATURE GRAN PERCENT AUTO 1 % (0-1); LYMPHOCYTES ABSOLUTE AUTO 1.63 K/mm3 (0.84-5.20); LYMPHOCYTES PERCENT AUTO 25 % (21-46); MONOCYTES ABSOLUTE AUTO 0.49 K/mm3 (0.16-1.47); MONOCYTES PERCENT AUTO 8 % (4-13); Mean Corpuscular HGB 30.1 pg (26.0-34.0); Mean Corpuscular HGB Conc 33.3 g/dL (31.5-36.5); Mean Corpuscular Volume 91 fL (80-100); NEUTROPHILS ABSOLUTE AUTO 4.17 K/mm3 (1.96-9.15); NEUTROPHILS PERCENT AUTO 65 % (41-73); RDW Coefficient Variation 13.5 % (11.7-14.2); RDW Standard Deviation 45.1 fL (35.1-46.3); Red Blood Cell Count 5.28 M/mm3 (4.30-5.90); White Blood Cell Count 6.42 K/mm3 (4.00-11.30)
[2024-01-25 08:50] LABS: Albumin/Globulin Ratio 1.1 (0.8-1.8); Bilirubin, Total 1.7 mg/dL (0.1-1.0); Bun/Creatinine Ratio 12.4 (12.0-20.0); Calcium, Blood 9.9 mg/dL (8.5-10.1); Creatinine, Blood 1.05 mg/dL (0.60-1.20); Globulin, Blood 3.7 g/dL (2.2-4.0); Magnesium, Blood 1.8 mg/dL (1.6-2.4); Potassium, Blood 4.4 mmol/L (3.5-5.5); Total Protein, Blood 7.7 g/dL (6.4-8.2)
[2024-01-25 08:55] LABS: Mean Platelet Volume 9.4 fL (9.1-12.4); Platelet Count 128 K/mm3 (150-400)
== END | disposition home or self-care (01) ==
LOC: LAB SHORT 08:34 → LAB 08:34
PROVIDERS: Emergency Medicine
DX: N39.0 Urinary tract infection, site not specified (principal); R31.9 Hematuria, unspecified
CPT/HCPCS: 80053; 83735; 85025; 87086

== ENCOUNTER 2024-07-16 09:09 | Emergency (ER) | payer MEDICARE ==
[~2024-07-16] VITALS: Ht 165.1 cm; Wt 72.6 kg
[2024-07-16] MEDS ORDERED: OxyCODONE HCL 5 MG TAB PO ONE (11:35)
[2024-07-16 12:30] VITALS: BP 130/68
[2024-07-16] MEDS ORDERED: Gabapentin 300 MG Cap PO ONE (12:35)
[2024-07-16] MEDS ORDERED: GABA300 PO (13:02)
== END 2024-07-16 13:19 | disposition home or self-care (01) ==
LOC: ER 09:09
DX: M54.17 Radiculopathy, lumbosacral region (principal); I10 Essential (primary) hypertension; E78.5 Hyperlipidemia, unspecified; I48.91 Unspecified atrial fibrillation; I25.10 Atherosclerotic heart disease of native coronary artery without angina pectoris; Z79.01 Long term (current) use of anticoagulants; Z79.899 Other long term (current) drug therapy; Z88.5 Allergy status to narcotic agent; Z87.891 Personal history of nicotine dependence; Z95.810 Presence of automatic (implantable) cardiac defibrillator
CPT/HCPCS: 99283; A9270

== ENCOUNTER 2024-07-27 17:32 | Observation (INO) | payer MEDICARE ==
[~2024-07-27] VITALS: Ht 182.9 cm; Wt 72.6 kg
[~2024-07-27 17:32] MED LIST changes: +GABA300 PO
[2024-07-27 17:57] LABS: BASOPHILS ABSOLUTE AUTO 0.02 K/mm3 (0.00-0.23); BASOPHILS PERCENT AUTO 0 % (0-2); EOSINOPHILS ABSOLUTE AUTO 0.04 K/mm3 (0.00-0.68); EOSINOPHILS PERCENT AUTO 1 % (0-6); Hemoglobin 13.1 g/dL (13.5-17.5); IMMATURE GRAN ABSOLUTE AUTO 0.04 K/mm3 (0.00-0.10); IMMATURE GRAN PERCENT AUTO 1 % (0-1); LYMPHOCYTES ABSOLUTE AUTO 0.86 K/mm3 (0.84-5.20); LYMPHOCYTES PERCENT AUTO 17 % (21-46); MONOCYTES ABSOLUTE AUTO 0.44 K/mm3 (0.16-1.47); MONOCYTES PERCENT AUTO 9 % (4-13); Mean Corpuscular HGB 31.2 pg (26.0-34.0); Mean Corpuscular HGB Conc 33.6 g/dL (31.5-36.5); Mean Corpuscular Volume 93 fL (80-100); Mean Platelet Volume 9.7 fL (9.1-12.4); NEUTROPHILS ABSOLUTE AUTO 3.69 K/mm3 (1.96-9.15); NEUTROPHILS PERCENT AUTO 73 % (41-73); Platelet Count 101 K/mm3 (150-400); RDW Coefficient Variation 13.3 % (11.7-14.2); RDW Standard Deviation 44.7 fL (35.1-46.3); White Blood Cell Count 5.09 K/mm3 (4.00-11.30)
[2024-07-27 18:21] LABS: Albumin/Globulin Ratio 1.1 (0.8-1.8); Bilirubin, Total 1.2 mg/dL (0.1-1.0); Calcium, Blood 8.5 mg/dL (8.5-10.1); Creatinine, Blood 0.71 mg/dL (0.60-1.20); Globulin, Blood 2.8 g/dL (2.2-4.0); Magnesium, Blood 1.7 mg/dL (1.6-2.4); Phosphorus, Blood 2.4 mg/dL (2.5-4.9); Potassium, Blood 3.6 mmol/L (3.5-5.5); Total Protein, Blood 5.8 g/dL (6.4-8.2)
[2024-07-27 18:43] LABS: Influenza B, PCR NEGATIVE (NEGATIVE); Resp Syncytial Virus, PCR NEGATIVE (NEGATIVE); SARS-Cov-2 (COVID-19) PCR, MMC NEGATIVE (NEGATIVE)
[2024-07-27 18:46] LABS: Influenza A, PCR POSITIVE (NEGATIVE)
[2024-07-27] MEDS ORDERED: Ondansetron HCl 2 MG / ML 2ML Vial IV ONE (21:20)
[2024-07-27] MEDS ORDERED: FLU VACC TS2024-25(6MOS UP)/PF 45 MCG/0.5 ML SYRINGE IM SCH (21:55)
[2024-07-27] MEDS ORDERED: Ondansetron HCl 2 MG / ML 2ML Vial IV PRN (21:55)
[2024-07-27] MEDS ORDERED: Oseltamivir Phosphate 75 MG Cap PO ONE (22:00)
[2024-07-27] MEDS ORDERED: Potassium Phosphate Dibasic 15 MM in Dextrose 5% 250 ML IV STA (22:57)
[2024-07-27] MEDS ORDERED: GABA300 PO (22:59)
[2024-07-27] MEDS ORDERED: METO50 PO (23:00)
[2024-07-27] MEDS ORDERED: Magnesium Sulf 2 GM/Water 50ML 50 ML IV ONE (23:00)
[2024-07-27] MEDS ORDERED: Lisinopril2.5 MG PO (23:01)
[2024-07-27 23:11] VITALS: BP 148/65
[2024-07-27] MEDS ORDERED: NS 250 ML IV PRN (23:35)
--- NOTE | 2024-07-28 05:07 | NUR ---
SHIFT SUMMARY 84 YR M ADMITTED ON 07/26/24. FULL CODE. SHORTLY AFTER ARRIVAL TO THIS UNIT, PT VOMITED FOR APPROX 10 MINUTES STRAIGHT. HE WAS GIVEN 4MG ZOFRAN WITH GOOD RESULTS. HE WAS VERY TIRED UPON ARRIVAL AND SLEPT OFF AND ON THROUGH HIS ASSESSMENT. TELE IN PLACE. PER PEDIATRICS PHYSICIAN, PT HAS A 9 BEAT RUN OF RAMONA @ 0400. NO OTHER ADVERSE TELE EVENTS. BED ALARM ON PT IS IMPULSIVE TO GET UP TO USE A URINAL AT BEDSIDE, AND HE IS VERY WEAK AND UNSTEADY ON HIS FEET. HE WAS EDUCATED ON USING THE CALL LIGHT TO ASK FOR ASSISTANCE TO PREVENT A FALL. BED IS IN LOW POSITION AND ALARM IS ON. CALL LIGHT IN REACH.
[2024-07-28 05:41] VITALS: BP 111/52
[2024-07-28 06:24] LABS: Albumin, Blood 3.3 g/dL (3.4-5.0); Anion Gap 12 mmol/L (3-11); Blood Urea Nitrogen 9 mg/dL (8-24); Bun/Creatinine Ratio 12.6 (12.0-20.0); CO2, Blood 24 mmol/L (21-32); Calcium, Blood 9.2 mg/dL (8.5-10.1); Chloride, Blood 105 mmol/L (98-108); Creatinine, Blood 0.71 mg/dL (0.60-1.20); Glomerular Filtration Rate 90 (60-); Glucose, Blood 213 mg/dL (70-99); Magnesium, Blood 2.1 mg/dL (1.6-2.4); Phosphorus, Blood 2.9 mg/dL (2.5-4.9); Potassium, Blood 4.5 mmol/L (3.5-5.5); Sodium, Blood 136 mmol/L (136-145)
[2024-07-28 07:36] VITALS: BP 128/96
[2024-07-28] MEDS ORDERED: Oseltamivir Phosphate 75 MG Cap PO ONE (09:00)
[2024-07-28] MEDS ORDERED: Oseltamvir Phosphate 30 MG Cap PO SCH ×2 (09:00)
[2024-07-28] MEDS ORDERED: Enoxaparin 40 MG/0.4 ML SYR SC SCH (09:00)
[2024-07-28] MEDS ORDERED: Percocet 5-3251 EACH PO (10:13)
[2024-07-28 15:20] VITALS: BP 117/59
--- NOTE | 2024-07-28 18:05 | NUR ---
PATIENT IS ALERT AND ORIENTED AND COOPERATIVE WITH CARE. ON RA. VSS. PATIENT SLEPT BETWEEN MEALS. HE HAS A APOOR APPETITE TODAY BUT ENJOYED CHICKEN BROTH AND WATER. UP TO THE BSC TO VOID. PATIENT CALLS APPROPRIATELY BUT CAN BE IMPULSIVE AT TIMES. BEDALARM IS IN PLACE. WILL CONTINUE TO MONITOR.
[2024-07-28 20:25] VITALS: BP 117/58
[2024-07-28] MEDS ORDERED: Metoprolol Tartrate 50 MG Tab PO SCH (21:00)
[2024-07-28] MEDS ORDERED: Lisinopril 5 MG Tab PO SCH (21:00)
[2024-07-29 03:00] VITALS: BP 156/90
--- NOTE | 2024-07-29 05:59 | NUR ---
SHIFT SUMMARY A&0X4, AFEBRILE/VSS, FREQUENT URINATION WITH URGENCY, AMBULATES WITH SBA TO BR OR USED BSC WHEN TIRED, STATES FEELING MUCH BETTER. DRESSING TO LG SKIN TEAR ON LT ELBOW CHANGED PT STATES HE HURT IT DURING HIS FALL AT HOME. NON- ADHERENT DRESSING WAS USED, PREVIOUS DSG WAS EMBEDDED IN SKIN REQUIRING EXTENSIVE IRRIGATION WITH WOUND CLEANSER TO LOOSEN -NO S/SX INFECTION TO AREA , DROPLET PRECAUTIONS MAINTAINED, NO RESP DISTRESS ON ROOM AIR,
[2024-07-29 06:18] LABS: BASOPHILS ABSOLUTE AUTO 0.03 K/mm3 (0.00-0.23); BASOPHILS PERCENT AUTO 1 % (0-2); EOSINOPHILS ABSOLUTE AUTO 0.01 K/mm3 (0.00-0.68); EOSINOPHILS PERCENT AUTO 0 % (0-6); Hematocrit 39.7 % (37.0-53.0); Hemoglobin 13.7 g/dL (13.5-17.5); IMMATURE GRAN ABSOLUTE AUTO 0.02 K/mm3 (0.00-0.10); IMMATURE GRAN PERCENT AUTO 1 % (0-1); LYMPHOCYTES ABSOLUTE AUTO 1.05 K/mm3 (0.84-5.20); LYMPHOCYTES PERCENT AUTO 29 % (21-46); MONOCYTES ABSOLUTE AUTO 0.71 K/mm3 (0.16-1.47); MONOCYTES PERCENT AUTO 20 % (4-13); Mean Corpuscular HGB 31.4 pg (26.0-34.0); Mean Corpuscular HGB Conc 34.5 g/dL (31.5-36.5); Mean Corpuscular Volume 91 fL (80-100); Mean Platelet Volume 10.9 fL (9.1-12.4); NEUTROPHILS ABSOLUTE AUTO 1.76 K/mm3 (1.96-9.15); NEUTROPHILS PERCENT AUTO 49 % (41-73); Platelet Count 80 K/mm3 (150-400); RDW Coefficient Variation 13.5 % (11.7-14.2); RDW Standard Deviation 45.5 fL (35.1-46.3); Red Blood Cell Count 4.36 M/mm3 (4.30-5.90); White Blood Cell Count 3.58 K/mm3 (4.00-11.30)
[2024-07-29 06:30] LABS: Albumin, Blood 2.8 g/dL (3.4-5.0); Bilirubin, Total 1.4 mg/dL (0.1-1.0); Bun/Creatinine Ratio 11.8 (12.0-20.0); Calcium, Blood 8.8 mg/dL (8.5-10.1); Creatinine, Blood 0.76 mg/dL (0.60-1.20); Globulin, Blood 2.8 g/dL (2.2-4.0); Potassium, Blood 3.8 mmol/L (3.5-5.5); Total Protein, Blood 5.6 g/dL (6.4-8.2)
[2024-07-29] MEDS ORDERED: Acetaminophen 325 MG TABLET PO PRN (06:40)
[2024-07-29 07:38] VITALS: BP 109/46
[2024-07-29] MEDS ORDERED: MetFORMIN HCl 500 mg PO SCH (08:00)
[2024-07-29] MEDS ORDERED: Tamsulosin HCl 0.4 MG Cap PO SCH (09:00)
[2024-07-29] MEDS ORDERED: Omeprazole 20 MG CapCR PO SCH (09:00)
[2024-07-29] MEDS ORDERED: Atorvastatin 40 MG Tab PO SCH (09:00)
[2024-07-29] MEDS ORDERED: METF500 PO (11:20)
[2024-07-29] MEDS ORDERED: OSEL75CA PO (11:21)
--- NOTE | 2024-07-29 15:32 | NUR ---
SUMMARY- PT DISCHARGED WITH INSTRUCTIONS, SENT HOME WITH BELONGINGS. WHEELCHAIR OUT TO PRIVATE CAR FOR DC HOME.
== END 2024-07-29 15:30 | disposition home health service (06) ==
LOC: ER 17:32 → MEDS 17:33
PROVIDERS: Family Medicine; Student in an Organized Health Care Education/Training Program; ADMIT Student in an Organized Health Care Education/Training Program
DX: J10.1 Influenza due to other identified influenza virus with other respiratory manifestations (principal); I25.10 Atherosclerotic heart disease of native coronary artery without angina pectoris; I48.91 Unspecified atrial fibrillation; I10 Essential (primary) hypertension; E78.5 Hyperlipidemia, unspecified; K21.9 Gastro-esophageal reflux disease without esophagitis; Z79.899 Other long term (current) drug therapy; Z88.8 Allergy status to other drugs, medicaments and biological substances; Z95.810 Presence of automatic (implantable) cardiac defibrillator
CPT/HCPCS: 0241U; 36415; 71045; 80053; 80069; 83036; 83690; 83735; 84100; 84145; 84484; 85025; 93005; 93010; 94760; 96365; 96366; 96372; 96374; 96375; 96376; 97116; 97162; 97165; 99285-25; A9270; G0378; J1650; J2405; J3475; J7050; J7060

== ENCOUNTER → 2024-10-23 | Outpatient (CLI) | payer MEDICARE ==
[~2024-10-23] MED LIST changes: +Lisinopril2.5 MG PO; +METF500 PO; +OSEL75CA PO; +Percocet 5-3251 EACH PO
[2024-10-23 16:14] LABS: Creatinine, Urine Random 86.3 mg/dL (27.00-270.00)
[2024-10-23 16:17] LABS: Microalb/Creat Ratio UR, Rand 90.846 mg/g (0.000-30.000); Microalbumin, Random Urine 78.4 mg/L (0.000-20.000)
== END ==
LOC: LAB SHORT 13:36 → LAB 13:36
PROVIDERS: Family Medicine
DX: E11.65 Type 2 diabetes mellitus with hyperglycemia (principal); E11.59 Type 2 diabetes mellitus with other circulatory complications
CPT/HCPCS: 82043; 82570

== ENCOUNTER 2025-03-31 07:29 | Day surgery (SDC) | payer MEDICARE ==
[~2025-03-31] VITALS: Ht 170.2 cm; Wt 76.1 kg
[~2025-03-31 07:29] MED LIST changes: +Balanced Salt Epinephrine Irrigation Solution 500 mL IR SCH; +Moxifloxacin HCL 0.5 MG/0.1 ML 0.4MLSYR RIGHTEYE SCH; +Ondansetron 4 MG SoluTab MM PRN; +PHENYLEPHRINE\\TROPICAMIDE\\TETRACAINE OPHTHALMIC DILATING SOLN RIGHTEYE PRN; +Povidone-Iodine 450 DROP/30 ML Solution ONE; +Povidone-Iodine 450 DROP/30 ML Solution RIGHTEYE SCH; +Tetracaine HCl/Pf 0.5% Opth Soln 4 ml ONE; +diazePAM 5 MG,diazePAM 2 MG PO SCH
--- NOTE | 2025-03-31 08:17 | NUR ---
03/31/25 0817 Tonie Graham CALL LIGHT WITHIN REACH. PT ON CONTINOUS PULSE OXIMETER FOR CONTINOUS MONITORING.
--- NOTE | 2025-03-31 08:50 | NUR ---
03/31/25 0850 Keiko Neves VITALS AT 0849 BP: 146/71 P: 67 O2: 99% WITH 8 LITERS OF BLOW BY OXYGEN
[2025-03-31 09:06] VITALS: BP 140/72
== END 2025-03-31 09:18 | disposition home or self-care (01) ==
LOC: ORSCSDS 07:29
PROVIDERS: Student in an Organized Health Care Education/Training Program
PROC: 08RJ3JZ Replacement of Right Lens with Synthetic Substitute, Percutaneous Approach (ICD-10-PCS; principal; 2025-03-31 09:00)
DX: E11.36 Type 2 diabetes mellitus with diabetic cataract (principal); H25.811 Combined forms of age-related cataract, right eye; Z96.1 Presence of intraocular lens; Z87.891 Personal history of nicotine dependence; I25.10 Atherosclerotic heart disease of native coronary artery without angina pectoris; Z95.810 Presence of automatic (implantable) cardiac defibrillator; H11.002 Unspecified pterygium of left eye; Z79.01 Long term (current) use of anticoagulants; Z79.4 Long term (current) use of insulin; Z79.84 Long term (current) use of oral hypoglycemic drugs; Z79.899 Other long term (current) drug therapy
CPT/HCPCS: A9270; J2003; V2632